=== PATIENT | female | born 1985 | race Caucasian/White ===

== ENCOUNTER 2019-09-04 11:56 | Inpatient (IN) | payer BC ==
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
[2019-09-04] MEDS ORDERED: MENTHOL/PHENOL 1 EACH UD MM PRN (14:17)
[2019-09-04] MEDS ORDERED: MAG HYDROX/AL HYDROX/SIMETH 30 ML UNIT-DOSE CUP PO PRN (14:17)
[2019-09-04] MEDS ORDERED: MAGNESIUM HYDROX 2400MG/30ML ORAL SUSPENSION 30 ML CUP PO PRN (14:17)
[2019-09-04] MEDS ORDERED: BISMUTH SUBSALICYLATE 524 MG/30 ML UD PO PRN (14:17)
[2019-09-04] MEDS ORDERED: MAGNESIUM CITRATE 300 ML BOTTLE PO PRN (14:17)
[2019-09-04] MEDS ORDERED: ACETAMINOPHEN 325 MG TABLET (FP) PO PRN ×2 (14:17)
[2019-09-04] MEDS ORDERED: IBUPROFEN 400 MG TABLET (FP) PO PRN (14:17)
[2019-09-04] MEDS ORDERED: METHOCARBAMOL 500 MG TABLET PO PRN (14:17)
[2019-09-04] MEDS ORDERED: cloNIDine HCL 0.1 MG TABLET PO PRN (14:19)
[2019-09-04 14:51] VITALS: BMI 20.5
[2019-09-04] MEDS ORDERED: METHADONE HCL 10 MG TABLET (FOR DETOX USE ONLY) PO ONE (15:00)
[2019-09-04] MEDS ORDERED: ONDANSETRON *ODT* 4 MG TABLET SL ONE (15:00)
[2019-09-04] MEDS: NICOTINE 14 MG/24 HOURS TOPICAL PATCH TD SCH (15:30)
[2019-09-04] MEDS: PRENATAL VITAMINS W/ FOLIC ACID TABLET (FP) PO SCH (15:46)
[2019-09-04] MEDS: NICOTINE POLACRILEX 2 MG GUM BUC PRN ×3 (15:49→23:09)
--- NOTE | 2019-09-04 15:55 | EKG ---
Test Reason : Blood Pressure : / mmHG Vent. Rate : 064 BPM Atrial Rate : 064 BPM P-R Int : 154 ms QRS Dur : 098 ms QT Int : 424 ms P-R-T Axes : 053 071 048 degrees QTc Int : 437 ms NORMAL SINUS RHYTHM NORMAL ECG NO PREVIOUS ECGS AVAILABLE Confirmed by Tavia Herron ([id number]) on 09/04/2019 3:55:20 PM Referred By: Confirmed By:Tavia Herron
[2019-09-04 16:52] LABS: HEMATOCRIT 38.5 % (32.4-45.2); HEMOGLOBIN 12.8 GM/dL (10.7-15.3); MCH 29.6 pg (25.7-33.7); MCHC 33.3 g/dl (32.0-36.0); MEAN PLT VOLUME 8.4 fl (7.5-11.1); PLATELET COUNT 367 K/MM3 (134-434); RBC 4.32 M/mm3 (3.60-5.2); RDW 13.7 % (11.6-15.6); WHITE BLOOD COUNT 6.6 K/mm3 (4.0-10.0)
[2019-09-04 17:04] LABS: ALBUMIN 3.7 g/dl (3.4-5.0); BILIRUBIN,TOTAL 0.8 mg/dL (0.2-1); BLOOD UREA NITROGEN 13.8 mg/dL (7-18); CALCIUM 9.1 mg/dL (8.5-10.1); CREATININE 0.8 mg/dL (0.55-1.3); POTASSIUM 3.7 mmol/L (3.5-5.1); TOT PROT 6.9 g/dl (6.4-8.2)
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
[2019-09-04] MEDS: hydrOXYzine PAMOATE 25 MG CAPSULE (FP) PO SCH ×2 (17:44→22:37)
[2019-09-04] MEDS: MIRTAZAPINE 15 MG TABLET (FP) PO SCH (22:36)
[2019-09-04] MEDS: THIAMINE HCL 100 MG TABLET (FP) PO SCH (22:37)
[2019-09-04] MEDS: MELATONIN 5 MG TABLETS PO SCH (22:38)
[2019-09-05] MEDS: hydrOXYzine PAMOATE 25 MG CAPSULE (FP) PO SCH ×6 (06:52→22:00)
[2019-09-05] MEDS ORDERED: METHADONE HCL 10 MG TABLET (FOR DETOX USE ONLY) ONE (08:54)
--- NOTE | 2019-09-05 08:54 | PN ---
Teaching Attending Note Name of Resident: Jose Armando Daigle ATTENDING PHYSICIAN STATEMENT I saw and evaluated the patient. I reviewed the resident's note and discussed the case with the resident. I agree with the resident's findings and plan as documented. SUBJECTIVE: Agree with resident's subjective findings OBJECTIVE: Alis with resident's objective findings ASSESSMENT AND PLAN: Agree with resident's plan and assessment. Dr. Swift Problem List - Problems (1) Cannabis abuse Code(s): F12.10 - CANNABIS ABUSE, UNCOMPLICATED (2) Cocaine abuse Code(s): F14.10 - COCAINE ABUSE, UNCOMPLICATED (3) Insomnia Code(s): G47.00 - INSOMNIA, UNSPECIFIED (4) Nicotine dependence Code(s): F17.200 - NICOTINE DEPENDENCE, UNSPECIFIED, UNCOMPLICATED (5) Opioid use disorder Code(s): F11.99 - OPIOID USE, UNSP WITH UNSPECIFIED OPIOID-INDUCED DISORDER (6) Substance induced mood disorder Code(s): F19.94 - OTH PSYCHOACTIVE SUBSTANCE USE, UNSP W MOOD DISORDER
[2019-09-05] MEDS ORDERED: METHADONE HCL 5 MG TABLET (FOR DETOX USE ONLY) ONE (08:55)
[2019-09-05] MEDS ORDERED: METHADONE (DETOX) 20 MG, METHADONE (DETOX) 5 MG PO ONE (10:00)
[2019-09-05] MEDS: NICOTINE 14 MG/24 HOURS TOPICAL PATCH TD SCH (10:24)
[2019-09-05] MEDS: PRENATAL VITAMINS W/ FOLIC ACID TABLET (FP) PO SCH (10:26)
[2019-09-05] MEDS: NICOTINE POLACRILEX 2 MG GUM BUC PRN ×2 (12:53→17:01)
--- NOTE | 2019-09-05 14:08 | PN ---
BHS COWS - Scale Resting Pulse: 0= [place] 80 or Below Sweatin= Chills/Flushing Restless Observation: 0= Sits Still Pupil Size: 1= Pupils >than Normal Bone or Joint Aches: 2= Severe Diffuse Aches Runny Nose/ Eye Tearin= None GI Upset > 30mins: 1= Stomach Cramp Tremor Observation of Outstretched Hands: 1= Tremor [place], Not Seen Yawning Observation: 0= None Anxiety or Irritability: 1=Feels Anxious/Irritable Goose Flesh Skin: 0=Smooth Skin COWS Score: 7 BHS Progress Note (SOAP) Subjective: 34 years old female admitted on 09/04/19 for opiate withdrawal sx management treating with methadone detox regiment alert oriented x 3 discuss aftercare with staff alert oriented x 3 social with peers in day room Objective: 09/05/19 14:38 Vital Signs - 24 hr 09/04/19 09/04/19 09/04/19 14:47 15:36 16:39 Temperature 97.5 F L 97.3 F L 97.5 F L Pulse Rate 67 65 66 Respiratory 12 16 20 Rate Blood Pressure 106/73 114/80 118/81 O2 Sat by Pulse 100 Oximetry (%) 09/04/19 09/04/19 09/05/19 20:38 21:41 06:18 Temperature 97.3 F L 97.3 F L Pulse Rate 58 L 80 Respiratory 16 18 Rate Blood Pressure 124/81 98/55 L O2 Sat by Pulse 100 97 Oximetry (%) 09/05/19 09/05/19 08:30 12:33 Temperature 96.9 F L 97.1 F L Pulse Rate 55 L 61 Respiratory 16 16 Rate Blood Pressure 133/78 112/71 O2 Sat by Pulse 97 Oximetry (%) Laboratory Tests 09/04/19 09/04/19 09/04/19 08:00 14:07 14:40 WBC RBC Hgb Hct MCV MCH MCHC RDW Plt Count MPV Sodium Potassium Chloride Carbon Dioxide Anion Gap BUN Creatinine Est GFR (CKD-EPI)AfAm Est GFR (CKD-EPI)NonAf Random Glucose Calcium Total Bilirubin AST ALT Alkaline Phosphatase Total Protein Albumin POC Urine HCG, Qual Negative Syphilis Serology Non-reactive HIV Ag/Ab Combo Qual Negative 09/04/19 09/04/19 14:40 14:40 WBC 6.6 RBC 4.32 Hgb 12.8 Hct 38.5 MCV 89.0 MCH 29.6 MCHC 33.3 RDW 13.7 Plt Count 367 MPV 8.4 Sodium 139 Potassium 3.7 Chloride 107 Carbon Dioxide 25 Anion Gap 7 L BUN 13.8 Creatinine 0.8 Est GFR (CKD-EPI)AfAm 111.48 Est GFR (CKD-EPI)NonAf 96.19 Random Glucose 91 Calcium 9.1 Total Bilirubin 0.8 AST 18 ALT 20 Alkaline Phosphatase 79 Total Protein 6.9 Albumin 3.7 POC Urine HCG, Qual Syphilis Serology HIV Ag/Ab Combo Qual lab noted Assessment: 09/05/19 14:38 opiate withdrawal Plan: methadone regiment
[2019-09-05] MEDS ORDERED: DOCUSATE SODIUM 100 MG CAPSULE (FP) PO ONE (17:48)
--- NOTE | 2019-09-05 17:50 | PN ---
BHS Progress Note Note: PT C/ CONSTIPATION , NO RELIEF W/MOM REQUESTING COLACE p; COLACE ADDED
[2019-09-05] MEDS ORDERED: MASKS NR ONE (20:48)
[2019-09-05] MEDS: MIRTAZAPINE 15 MG TABLET (FP) PO SCH (22:00)
[2019-09-05] MEDS: THIAMINE HCL 100 MG TABLET (FP) PO SCH (22:00)
[2019-09-05] MEDS: MELATONIN 5 MG TABLETS PO SCH (22:01)
[2019-09-06] MEDS: hydrOXYzine PAMOATE 25 MG CAPSULE (FP) PO SCH (06:21)
[2019-09-06] MEDS ORDERED: MAGNESIUM HYDROX 2400MG/30ML ORAL SUSPENSION 30 ML CUP PO ONE (09:32)
--- NOTE | 2019-09-06 09:42 | PN ---
BHS COWS - Scale Resting Pulse: 0= [place] 80 or Below Sweatin= No chills or Flushing Restless Observation: 0= Sits Still Pupil Size: 0= Normal to Room Light Bone or Joint Aches: 1= Mild Discomfort Runny Nose/ Eye Tearin= Nasal Congestion GI Upset > 30mins: 0= None Tremor Observation of Outstretched Hands: 1= Tremor [place], Not Seen Yawning Observation: 0= None Anxiety or Irritability: 1=Feels Anxious/Irritable Goose Flesh Skin: 0=Smooth Skin COWS Score: 4 BHS Progress Note (SOAP) Subjective: 34 years old female admitted on 09/04/19 for opiate withdrawal sx management treating with methadone detox regiment feeling sleep discontinue vistaril small hard stool x 1 MOM 30ml po x 1 Objective: 09/06/19 09:41 Vital Signs - 24 hr 09/05/19 09/05/19 09/05/19 12:33 16:35 20:48 Temperature 97.1 F L 97.3 F L 97.3 F L Pulse Rate 61 49 L 49 L Respiratory 16 16 16 Rate Blood Pressure 112/71 119/77 122/87 O2 Sat by Pulse 97 100 Oximetry (%) 09/06/19 09/06/19 06:13 08:45 Temperature 96.9 F L 96.2 F L Pulse Rate 59 L 55 L Respiratory 18 18 Rate Blood Pressure 100/51 L 100/55 L O2 Sat by Pulse 99 Oximetry (%) Laboratory Tests 09/04/19 09/04/19 09/04/19 08:00 14:07 14:40 WBC RBC Hgb Hct MCV MCH MCHC RDW Plt Count MPV Sodium Potassium Chloride Carbon Dioxide Anion Gap BUN Creatinine Est GFR (CKD-EPI)AfAm Est GFR (CKD-EPI)NonAf Random Glucose Calcium Total Bilirubin AST ALT Alkaline Phosphatase Total Protein Albumin POC Urine HCG, Qual Negative Syphilis Serology Non-reactive HIV Ag/Ab Combo Qual Negative 09/04/19 09/04/19 14:40 14:40 WBC 6.6 RBC 4.32 Hgb 12.8 Hct 38.5 MCV 89.0 MCH 29.6 MCHC 33.3 RDW 13.7 Plt Count 367 MPV 8.4 Sodium 139 Potassium 3.7 Chloride 107 Carbon Dioxide 25 Anion Gap 7 L BUN 13.8 Creatinine 0.8 Est GFR (CKD-EPI)AfAm 111.48 Est GFR (CKD-EPI)NonAf 96.19 Random Glucose 91 Calcium 9.1 Total Bilirubin 0.8 AST 18 ALT 20 Alkaline Phosphatase 79 Total Protein 6.9 Albumin 3.7 POC Urine HCG, Qual Syphilis Serology HIV Ag/Ab Combo Qual 09/06/19 09:42 lab noted covid pending Assessment: 09/06/19 09:42 opiate withdrawal constipation Plan: methadone regiment MOM 30ml x 1 if not effective encourage citroma continue colace
[2019-09-06] MEDS ORDERED: METHADONE HCL 10 MG TABLET (FOR DETOX USE ONLY) PO ONE (10:00)
[2019-09-06] MEDS: NICOTINE 14 MG/24 HOURS TOPICAL PATCH TD SCH (10:32)
[2019-09-06] MEDS: PRENATAL VITAMINS W/ FOLIC ACID TABLET (FP) PO SCH (10:33)
[2019-09-06] MEDS: NICOTINE POLACRILEX 2 MG GUM BUC PRN ×4 (10:33→22:27)
[2019-09-06] MEDS: MELATONIN 5 MG TABLETS PO SCH (22:11)
[2019-09-06] MEDS: MIRTAZAPINE 15 MG TABLET (FP) PO SCH (22:12)
[2019-09-06] MEDS: THIAMINE HCL 100 MG TABLET (FP) PO SCH (22:12)
[2019-09-07] MEDS ORDERED: METHADONE HCL 5 MG TABLET (FOR DETOX USE ONLY) ONE (08:06)
[2019-09-07] MEDS ORDERED: METHADONE HCL 10 MG TABLET (FOR DETOX USE ONLY) ONE (08:06)
[2019-09-07] MEDS: PRENATAL VITAMINS W/ FOLIC ACID TABLET (FP) PO SCH (09:48)
[2019-09-07] MEDS: NICOTINE 14 MG/24 HOURS TOPICAL PATCH TD SCH (09:48)
[2019-09-07] MEDS ORDERED: METHADONE (DETOX) 10 MG, METHADONE (DETOX) 5 MG PO ONE (10:00)
--- NOTE | 2019-09-07 10:34 | PN ---
BHS COWS - Scale Resting Pulse: 0= [place] 80 or Below Sweatin= No chills or Flushing Restless Observation: 0= Sits Still Pupil Size: 1= Pupils >than Normal Bone or Joint Aches: 0= None Runny Nose/ Eye Tearin= None GI Upset > 30mins: 0= None Tremor Observation of Outstretched Hands: 1= Tremor [place], Not Seen Yawning Observation: 0= None Anxiety or Irritability: 1=Feels Anxious/Irritable Goose Flesh Skin: 0=Smooth Skin COWS Score: 3 BHS Progress Note (SOAP) Subjective: 34 years old female admitted on 09/04/19 for opiate withdrawal sx management treating with methadone detox regiment feeling tired trouble fall asleep last night tremor restlessness Objective: 09/07/19 10:33 Vital Signs - 24 hr 09/06/19 09/06/19 09/06/19 12:35 16:33 20:32 Temperature 97.4 F L 97.5 F L 97.5 F L Pulse Rate 60 56 L 65 Respiratory 18 18 18 Rate Blood Pressure 115/71 116/78 124/86 O2 Sat by Pulse 97 99 Oximetry (%) 09/07/19 09/07/19 06:24 09:07 Temperature 96.9 F L 97.3 F L Pulse Rate 50 L 60 Respiratory 18 18 Rate Blood Pressure 103/70 116/91 O2 Sat by Pulse 100 Oximetry (%) Laboratory Tests 09/04/19 09/04/19 09/04/19 08:00 09:45 14:07 WBC RBC Hgb Hct MCV MCH MCHC RDW Plt Count MPV Sodium Potassium Chloride Carbon Dioxide Anion Gap BUN Creatinine Est GFR (CKD-EPI)AfAm Est GFR (CKD-EPI)NonAf Random Glucose Calcium Total Bilirubin AST ALT Alkaline Phosphatase Total Protein Albumin POC Urine HCG, Qual Negative Syphilis Serology COVID-19 (MELANY) Not detected HIV Ag/Ab Combo Qual Negative 09/04/19 09/04/19 09/04/19 14:40 14:40 14:40 WBC 6.6 RBC 4.32 Hgb 12.8 Hct 38.5 MCV 89.0 MCH 29.6 MCHC 33.3 RDW 13.7 Plt Count 367 MPV 8.4 Sodium 139 Potassium 3.7 Chloride 107 Carbon Dioxide 25 Anion Gap 7 L BUN 13.8 Creatinine 0.8 Est GFR (CKD-EPI)AfAm 111.48 Est GFR (CKD-EPI)NonAf 96.19 Random Glucose 91 Calcium 9.1 Total Bilirubin 0.8 AST 18 ALT 20 Alkaline Phosphatase 79 Total Protein 6.9 Albumin 3.7 POC Urine HCG, Qual Syphilis Serology Non-reactive COVID-19 (MELANY) HIV Ag/Ab Combo Qual lab noted Assessment: 09/07/19 10:34 opiate withdrawal Plan: methadone regiment
[2019-09-07] MEDS: NICOTINE POLACRILEX 2 MG GUM BUC PRN ×3 (12:51→20:46)
[2019-09-07] MEDS: THIAMINE HCL 100 MG TABLET (FP) PO SCH (22:04)
[2019-09-07] MEDS: MELATONIN 5 MG TABLETS PO SCH (22:04)
[2019-09-07] MEDS: MIRTAZAPINE 15 MG TABLET (FP) PO SCH (22:04)
[2019-09-08] MEDS ORDERED: METHADONE HCL 10 MG TABLET (FOR DETOX USE ONLY) PO ONE (10:00)
[2019-09-08] MEDS: NICOTINE 14 MG/24 HOURS TOPICAL PATCH TD SCH (10:01)
[2019-09-08] MEDS: NICOTINE POLACRILEX 2 MG GUM BUC PRN ×4 (10:01→22:15)
[2019-09-08] MEDS: PRENATAL VITAMINS W/ FOLIC ACID TABLET (FP) PO SCH (10:01)
--- NOTE | 2019-09-08 11:26 | PN ---
[facility] CIWA - CIWA Score Nausea/Vomitin-No Nausea/No Vomiting Muscle Tremors: None Anxiety: 1-Mildly Anxious Agitation: 0-Normal Activity Paroxysmal Sweats: 1-Minimal Palms Moist Orientation: 0-Oriented Tacttile Disturbances: 0-None Auditory Disturbances: 0-None Visual Disturbances: 0-None Headache: 0-None Present CIWA-Ar Total Score: 2 S COWS - Scale Resting Pulse: 0= [place] 80 or Below Sweatin= Beads of Sweat on Face Restless Observation: 0= Sits Still Pupil Size: 0= Normal to Room Light Bone or Joint Aches: 0= None Runny Nose/ Eye Tearin= None GI Upset > 30mins: 0= None Tremor Observation of Outstretched Hands: 0= None Yawning Observation: 0= None Anxiety or Irritability: 1=Feels Anxious/Irritable Goose Flesh Skin: 0=Smooth Skin COWS Score: 4 S Progress Note (SOAP) Subjective: Patient complained of constiption and has been told she can ask for medication(milk of Magnesium) prn for constipation. She is happy she came and has a plane to attend out patient rehab program. She said she is looking forward to taking care of her kids and that's all she wants to do. Objective: NEURO: anxious,mildly restless,oriented G1:-nausea, mild constipation,- yawning NEURO: +Anxiety,+ mild agitation, - tremors,oriented x3,-noise, -light, - head ache, pupils nl CVS:97/67mmHg, sweating SKIN: nl Musculoskeletal:- bone, - joints RESP: - runny nose. Patient is due for discharge on 09/09/2019 Assessment: 09/08/19 11:38 Patient spoke c 09/08/19 11:51 Assessment: Ms. Annmarie Thomas is on admission for detox from opiates,nicotine,marijuana and cocaine. She is recovering well. NEURO: anxious,mildly restless,oriented G1:-nausea, mild constipation,- yawning NEURO: +Anxiety,+ mild agitation, - tremors,oriented x3,-noise, -light, - headache, pupils nl CVS:97/67mmHg, sweating SKIN: nl Musculoskeletal:- bone, - joints RESP: - runny nose. Patient is due for discharge on 09/09/2019 Plan: Ms. Annmarie Thomas would be leaving tomorrow 2019. She would be attending an outpat rehab from Wednesday09/12/2019 Patient is to complete medications for remaining days as prescribed.
[2019-09-08] MEDS: THIAMINE HCL 100 MG TABLET (FP) PO SCH (22:13)
[2019-09-08] MEDS: MIRTAZAPINE 15 MG TABLET (FP) PO SCH (22:13)
[2019-09-08] MEDS: MELATONIN 5 MG TABLETS PO SCH (22:14)
[2019-09-09] MEDS ORDERED: METHADONE HCL 5 MG TABLET (FOR DETOX USE ONLY) PO ONE (06:00)
[2019-09-09 09:15] VITALS: BP 107/77; PULSE 72; TEMP 97.1
--- NOTE | 2019-09-09 14:27 | DS ---
[facility] Detox Discharge Summary Admission Date: 09/04/19 Discharge Date: 09/09/19 - History Present History: Cannabis Dependence, Cocaine Dependence, Opioid Dependence Additional Comments: Pt is medically cleared and discharge today. Pt completed the detox protocol. Pt is encouraged to follow-up with an outpatient CD program and also to follow-up with her pmd which she verbalized understanding. Pt is alert oriented x3, in no acute respiratory, full ROM, and ambulatory. Pertinent Past History: h/o cocaine, cannabis, and heroin use disorder. - Physical Exam Results Vital Signs: Vital Signs Temperature 97.1 F L 09/09/19 08:30 Pulse Rate 72 09/09/19 08:30 Respiratory Rate 18 09/09/19 08:30 Blood Pressure 107/77 09/09/19 08:30 O2 Sat by Pulse Oximetry (%) 99 09/09/19 06:34 Vital Signs 09/09/19 09/09/19 06:34 08:30 Temperature 97.2 F L 97.1 F L Pulse Rate 51 L 72 Respiratory 18 18 Rate Blood Pressure 99/56 L 107/77 O2 Sat by Pulse 99 Oximetry (%) Laboratory Last Values WBC 6.6 K/mm3 (4.0-10.0) 09/04/19 14:40 RBC 4.32 M/mm3 (3.60-5.2) 09/04/19 14:40 Hgb 12.8 GM/dL (10.7-15.3) 09/04/19 14:40 Hct 38.5 % (32.4-45.2) 09/04/19 14:40 MCV 89.0 fl (80-96) 09/04/19 14:40 MCH 29.6 pg (25.7-33.7) 09/04/19 14:40 MCHC 33.3 g/dl (32.0-36.0) 09/04/19 14:40 RDW 13.7 % (11.6-15.6) 09/04/19 14:40 Plt Count 367 K/MM3 (134-434) 09/04/19 14:40 MPV 8.4 fl (7.5-11.1) 09/04/19 14:40 Sodium 139 mmol/L (136-145) 09/04/19 14:40 Potassium 3.7 mmol/L (3.5-5.1) 09/04/19 14:40 Chloride 107 mmol/L (98-107) 09/04/19 14:40 Carbon Dioxide 25 mmol/L (21-32) 09/04/19 14:40 Anion Gap 7 MMOL/L (8-16) L 09/04/19 14:40 BUN 13.8 mg/dL (7-18) 09/04/19 14:40 Creatinine 0.8 mg/dL (0.55-1.3) 09/04/19 14:40 Est GFR (CKD-EPI)AfAm 111.48 09/04/19 14:40 Est GFR (CKD-EPI)NonAf 96.19 09/04/19 14:40 Random Glucose 91 mg/dL (74-106) 09/04/19 14:40 Calcium 9.1 mg/dL (8.5-10.1) 09/04/19 14:40 Total Bilirubin 0.8 mg/dL (0.2-1) 09/04/19 14:40 AST 18 U/L (15-37) 09/04/19 14:40 ALT 20 U/L (13-61) 09/04/19 14:40 Alkaline Phosphatase 79 U/L (45-117) 09/04/19 14:40 Total Protein 6.9 g/dl (6.4-8.2) 09/04/19 14:40 Albumin 3.7 g/dl (3.4-5.0) 09/04/19 14:40 POC Urine HCG, Qual Negative 09/04/19 14:07 Syphilis Serology Non-reactive (NONREACTIVE) 09/04/19 14:40 COVID-19 (MELANY) Not detected (Not Detected) 09/04/19 09:45 HIV Ag/Ab Combo Qual Negative (NEGATIVE) 09/04/19 08:00 Labs noted. Pertinent Admission Physical Exam Findings: Withdrawal symptoms. - Treatment Hospital Course: Detox Protocol Followed, Detoxed Safely, Responded well, Discharged Condition Good - Medication Discharge Medications: Ambulatory Orders Mirtazapine [Remeron -] 15 mg PO HS 09/04/19 - Diagnosis (1) Cannabis abuse Status: Chronic (2) Cocaine abuse Status: Chronic (3) Nicotine dependence Status: Chronic (4) Opioid use disorder Status: Chronic (5) Opioid withdrawal Status: Acute - AMA Did Patient Leave Against Medical Advice: No
== END 2019-09-09 09:52 | disposition other institution (70) | DRG 773 ==
LOC: YASAS 11:56 → Y3N 14:43
PROVIDERS: ADMIT Allergy & Immunology; ATTEND Allergy & Immunology
PROC: HZ2ZZZZ Detoxification Services for Substance Abuse Treatment (ICD-10-PCS; principal; 2019-09-04)
DX: F11.23 Opioid dependence with withdrawal (principal); F14.10 Cocaine abuse, uncomplicated; F12.10 Cannabis abuse, uncomplicated; F17.210 Nicotine dependence, cigarettes, uncomplicated; F19.24 Other psychoactive substance dependence with psychoactive substance-induced mood disorder; F41.8 Other specified anxiety disorders; F32.9 Major depressive disorder, single episode, unspecified; G47.00 Insomnia, unspecified; K59.00 Constipation, unspecified; Z86.79 Personal history of other diseases of the circulatory system; Z98.890 Other specified postprocedural states; Z94.5 Skin transplant status; Z88.8 Allergy status to other drugs, medicaments and biological substances; Z56.0 Unemployment, unspecified
CPT/HCPCS: 36415; 80053; 81025; 85027; 86780; 87389; 93005; 93010; U0003